=== PATIENT | female | born 2000 | race Caucasian/White ===

== ENCOUNTER 2021-05-14 13:30 | Outpatient (RCR) | payer OTHER ==
[~2021-05-14 13:30] MED LIST: LO LOESTRIN FE1 TAB PO
== END 2021-05-20 | disposition home or self-care (01) ==
LOC: WSPT
DX: G89.4 Chronic pain syndrome (principal)

== ENCOUNTER 2021-06-04 19:42 | Emergency (ER) | payer OTHER ==
[~2021-06-04] VITALS: Ht 165.1 cm; Wt 66.4 kg
[2021-06-04 20:10] VITALS: TEMP 98.6
[2021-06-04] MEDS ORDERED: VALIUM 5MG T5 MG/TAB PO (21:55)
[2021-06-04 22:20] VITALS: BP 120/61; PULSE 80
== END 2021-06-04 22:25 | disposition home or self-care (01) ==
LOC: COL.ER 19:42
DX: R42 Dizziness and giddiness (principal); R25.1 Tremor, unspecified

== ENCOUNTER → 2021-08-23 | Outpatient (CLI) | payer OTHER ==
[~2021-08-23] MED LIST changes: +VALIUM 5MG T5 MG/TAB PO
== END ==
LOC: COL.VAS 11:56
DX: M54.2 Cervicalgia (principal); R42 Dizziness and giddiness

== ENCOUNTER → 2022-12-04 | Outpatient (CLI) | payer OTHER | LOC: COL.CARD 12:31 | DX: H53.143 Visual discomfort, bilateral (principal); R42 Dizziness and giddiness; R51.9 Headache, unspecified ==